=== PATIENT | male | born 1985 | race Caucasian/White ===

== ENCOUNTER 2017-07-19 17:19 | Emergency (ER) | payer SELFPAY ==
[~2017-07-19] VITALS: Ht 185.4 cm; Wt 81.6 kg
[~2017-07-19 17:19] MED LIST: CYCL10TA9 PO; DIAZ-345 PO; IBUP-1773 PO
--- NOTE | 2017-07-19 18:27 | ED Psychosocial ---
General Chief Complaint: General Problems/Pain Stated Complaint: PAIN IN LT LEG Nursing Triage Note: PATIENT HAS HAD PAIN IN THE POSTERIOR LEFT LEG FOR ABOUT ONE WEEK, SPECIFICALLY BEHIND THE KNEE. HE BELIEVES HE HAS A BLOOD CLOT. Source: patient Exam Limitations: no limitations (NADIRA VALENTINO) History of Present Illness Time seen by provider: 17:45 Initial Comments 32 -year-old male patient presents to the emergency department initially with reports of posterior left knee pain and swelling x1 wk. Patient is concerned about a blood clot. Patient does c/o chest pain and SOA, but has a h/o 3 fungal infections of the lungs after cleaning out a grain bin at work and states "I almost from them."During the visit however patient verbalizes being under a lot of stress and suffering from depression. Patient states he doesn't care what happens to him. Denies being suicidal or having a plan. States he just doesn't care if something happens to him. Patient states he has a 3 yo son in [place] and the mother will not let him see his son. Timing/Duration: week (NADIRA VALENTINO) Allergies and Home Medications Allergies Coded Allergies: Sulfa (Sulfonamide Antibiotics) (Verified Allergy, Unknown, 06/09/15) Home Medications No Active Prescriptions or Reported Meds Constitutional: No chills, No diaphoresis, No dizziness, No fever, No malaise EENTM: no symptoms reported Respiratory: cough, No phlegm, short of breath, wheezing Cardiovascular: see HPI, chest pain, No palpitations, No syncope Gastrointestinal: No abdominal pain, No constipation, No diarrhea, No nausea, No vomiting Genitourinary: no symptoms reported Musculoskeletal: see HPI, No back pain, joint pain, joint swelling, No neck pain Skin: no symptoms reported Psychiatric/Neurological: See HPI, Anxiety, Depressed, Denies Headache, Denies Numbness, Denies Paresthesia, Denies Seizure, Denies Tingling, Denies Weakness ( NADIRA VALENTINO) All Other Systems Reviewed Negative Unless Noted: Yes (Negative excepted noted.) (NADIRA VALENTINO) Past Eoshgfd-Cxiwak-Zscxke Hx Patient Social History Alcohol Use: Occasionally Uses Alcohol Beverage of Choice: Beer Recreational Drug Use: Yes Drug of Choice: MARIJUANA Smoking Status: Current Everyday Smoker Type Used: Cigars Recent Foreign Travel: No Contact w/Someone Who Travel: No Recent Infectious Disease Expo: No Physical Abuse: No Sexual Abuse: No (NADIRA VALENTINO) Immunizations Up To Date PED Vaccines UTD: Yes (NADIRA VALENTINO) Seasonal Allergies Seasonal Allergies: No (NADIRA VALENTINO) Surgeries History of Surgeries: Yes (right arm) Surgeries: Tonsillectomy (NADIRA VALENTINO) Respiratory History of Respiratory Disorde: No (NADIRA VALENTINO) Cardiovascular History of Cardiac Disorders: No (NADIRA VALENTINO) Neurological History of Neurological Disord: No (NADIRA VALENTINO) Reproductive System Hx Reproductive Disorders: No Sexually Transmitted Disease: No HIV/AIDS: No (NADIRA VALENTINO) Genitourinary History of Genitourinary Disor: No (NADIRA VALENTINO) Gastrointestinal History of Gastrointestinal Di: No (NADIRA VALENTINO) Musculoskeletal History of Musculoskeletal Dis: No (NADIRA VALENTINO) Endocrine History of Endocrine Disorders: No (NADIRA VALENTINO) Cancer History of Cancer: No (NADIRA VALENTINO) Psychosocial History of Psychiatric Problem: Yes Behavioral Health Disorders: Anxiety Suicide Risk Score: 0 (NADIRA VALENTINO) Integumentary History of Skin or Integumenta: No (NADIRA VALENTINO) Blood Transfusions History of Blood Disorders: No (NADIRA VALENTINO) Reviewed Nursing Assessment Reviewed/Agree w Nursing PMH: Yes (NADIRA VALENTINO) Family Medical History Significant Family History: No Pertinent Family Hx (NADIRA VALENTINO) Physical Exam Vital Signs Vital Sign - Last 12Hours 07/19/17 17:37 Temp 98.9 Pulse 86 Resp 18 B/P (MAP) 126/99 Pulse Ox 99 (LENORE GRIGSBY) Vital Signs Capillary Refill : Less Than 3 Seconds (NADIRA VALENTINO) General Appearance: WD/WN, no apparent distress HEENT: PERRL/EOMI, pharynx normal Neck: supple, normal inspection Respiratory: lungs clear, normal breath sounds, no respiratory distress, no accessory muscle use Cardiovascular: normal peripheral pulses, regular rate, rhythm, no edema, no murmur Peripheral Pulses: 2+ Dorsalis Pedis (R), 2+ Left Dors-Pedis (L), 2+ Radial Pulses (R), 2+ Radial Pulses (L) Gastrointestinal: normal bowel sounds, non tender, soft Extremities: normal range of motion, no pedal edema, no calf tenderness, normal capillary refill, other (left knee posterior tenderness. 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 unable to appreciate swelling to the left knee. Left knee full range of motion, tenderness at the medial proximal gastrocnemius. No effusion, negative [place], anterior and posterior drawer. Neurovascular status intact lower extremity symmetric with the left) (CALISTA,LENORE CONVEYOR ATTENDANT) Progress/Results/Core Measures Results/Orders Lab Results Laboratory Tests Test 07/19/17 18:26 07/19/17 18:39 Range/Units Urine Color YELLOW Urine Clarity CLEAR Urine pH 6 5-9 Urine Specific [place] 1.020 1.016-1.022 Urine Protein 3+ H NEGATIVE Urine Glucose (UA) NEGATIVE NEGATIVE Urine Ketones NEGATIVE NEGATIVE Urine Nitrite NEGATIVE NEGATIVE Urine Bilirubin NEGATIVE NEGATIVE Urine Urobilinogen 1 NORMAL MG/DL Urine Leukocyte Esterase 1+ H NEGATIVE Urine RBC (Auto) NEGATIVE NEGATIVE Urine RBC NONE /HPF Urine WBC 2-5 /HPF Urine Crystals NONE /LPF Urine Bacteria NONE /HPF Urine Casts NONE /LPF Urine Mucus SMALL H /LPF Urine Culture Indicated NO Urine Opiates Screen NEGATIVE NEGATIVE Urine Oxycodone Screen NEGATIVE NEGATIVE Urine Methadone Screen NEGATIVE NEGATIVE Urine Propoxyphene Screen NEGATIVE NEGATIVE Urine Barbiturates Screen NEGATIVE NEGATIVE Ur Tricyclic Antidepressants Screen NEGATIVE NEGATIVE Urine Phencyclidine Screen NEGATIVE NEGATIVE Urine Amphetamines Screen NEGATIVE NEGATIVE Urine Methamphetamines Screen POSITIVE H NEGATIVE Urine Benzodiazepines Screen POSITIVE H NEGATIVE Urine Cocaine Screen NEGATIVE NEGATIVE Urine Cannabinoids Screen POSITIVE H NEGATIVE White Blood Count 6.9 4.3-11.0 10^3/uL Red Blood Count 5.23 4.35-5.85 10^6/uL Hemoglobin 15.8 13.3-17.7 G/DL Hematocrit 46 40-54 % Mean Corpuscular Volume 89 80-99 FL Mean Corpuscular Hemoglobin 30 25-34 PG Mean Corpuscular Hemoglobin Concent 34 32-36 G/DL Red Cell Distribution Width 12.4 10.0-14.5 % Platelet Count 271 130-400 10^3/uL Mean Platelet Volume 10.6 H 7.4-10.4 FL Neutrophils (%) (Auto) 70 42-75 % Lymphocytes (%) (Auto) 18 12-44 % Monocytes (%) (Auto) 9 0-12 % Eosinophils (%) (Auto) 2 0-10 % Basophils (%) (Auto) 0 0-10 % Neutrophils # (Auto) 4.9 1.8-7.8 X 10^3 Lymphocytes # (Auto) 1.3 1.0-4.0 X 10^3 Monocytes # (Auto) 0.7 0.0-1.0 X 10^3 Eosinophils # (Auto) 0.1 0.0-0.3 10^3/uL Basophils # (Auto) 0.0 0.0-0.1 10^3/uL Sodium Level 141 135-145 MMOL/L Potassium Level 3.8 3.6-5.0 MMOL/L Chloride Level 105 98-107 MMOL/L Carbon Dioxide Level 28 21-32 MMOL/L Anion Gap 8 5-14 MMOL/L Blood Urea Nitrogen 9 7-18 MG/DL Creatinine 0.97 0.60-1.30 MG/DL Estimat Glomerular Filtration Rate > 60 BUN/Creatinine Ratio 9 Glucose Level 96 70-105 MG/DL Calcium Level 9.3 8.5-10.1 MG/DL Total Bilirubin 0.3 0.1-1.0 MG/DL Aspartate Amino Transf (AST/SGOT) 17 5-34 U/L Alanine Aminotransferase (ALT/SGPT) 12 0-55 U/L Alkaline Phosphatase 55 40-136 U/L Total Protein 7.1 6.4-8.2 GM/DL Albumin 4.3 3.2-4.5 GM/DL TSH [place] Testing 1.72 0.35-4.94 UIU/ML Salicylates Level < 5.0 L 5.0-20.0 MG/DL Acetaminophen Level < 10 L 10-30 UG/ML Serum Alcohol < 10 <10 MG/DL (LENORE GRIGSBY DEEPIKA) Medications Given in ED Current Medications Medications Dose Ordered Sig/Jocelyn Route Start Time Stop Time Status Last Admin Dose Admin Iohexol 150 ml ONCE ONCE IV 07/19/17 18:30 07/19/17 18:31 DC 07/19/17 18:52 125 ML Lorazepam 1 mg ONCE ONCE IVP 07/19/17 18:30 07/19/17 18:31 DC 07/19/17 19:03 1 MG Sodium Chloride 100 ml ONCE ONCE IV 07/19/17 18:30 07/19/17 18:31 DC 07/19/17 18:52 100 ML (LENORE GRIGSBY DEEPIKA) Vital Signs/I&O Vital Sign - Last 12Hours 07/19/17 07/19/17 17:37 20:40 Temp 98.9 98.9 Pulse 86 86 Resp 18 18 B/P (MAP) 126/99 Pulse Ox 99 99 (LENORE GRIGSBY DEEPIKA) Blood Pressure Mean: 108 Progress Note : Progress Note 1930 reviewed results of all labs and diagnostic studies with the patient. Discussed the positive benzodiazepine on his urine drug screen, he reports that he was given a pill by a friend the other day and it "could have been valium." He adamantly denies using methamphetamines. He does report smoking marijuana irregularly. 2000 long discussion with the patient regarding mental health issues. He denies any thoughts or plans of suicide or homicidal actions. He does have feelings of hopelessness, this is mainly related to his 3-year-old son. He has had no contact with him in several weeks and his ex-girlfriend is not allowing him to see his son. Discussed options for mental health services in [facility] and legal services offered at [facility]. He is open to these suggestions and the need for establishing with a primary care provider. Discussed at this time I'm not comfortable prescribing medication for his anxiety due to his use of illicit drugs and random "pills." He verbalized understanding of this and will return to the emergency department, call [phone] or call [phone] if he ever has homicidal or suicidal thoughts. (CALISTALENORE POE) ECG Initial ECG Impression Date: Jul 19, 2017 Initial ECG Impression Time: 18:57 Initial ECG Rate: 77 Initial ECG Rhythm: Normal Sinus Initial ECG Intervals: Normal Initial ECG Intervals Incomplete RBBB and LAFB VT 144, QRS D102, QT 356, QTC 403. Register P 56, QRS -50, T 66 Initial ECG Impression: Nonspecific Changes Initial ECG Comparisson: Changed, Unchanged Comment Reviewed EKG with Dr. Mcmanus, concurred with interpretation. (LENORE GRIGSBY) Diagnostic Imaging Diagonstic Imaging: CT Plain Films/CT/US/NM/MRI: chest Comments NAME: TOBY OH [facility] REC#: [id number] PT STATUS: REG ER : 1985 PHYSICIAN: NADIRA VALENTINO ADMIT DATE: 07/19/17/ER Draft Date of Exam:07/19/17 CT ANGIO CHEST W INDICATION: Left-sided chest pain with coughing and congestion. History of smoking. EXAMINATION: CT angiogram of the chest with contrast, 07/19/2017. FINDINGS: There are no central or proximal segmental pulmonary emboli. The thoracic aorta is intact and unremarkable. No hilar or mediastinal adenopathy is appreciated. There is no axillary adenopathy. There are several slightly hyperdense nodules in the right lung, likely calcified. A density in the anterior left mid lung (image 49) could be calcified but is somewhat small for characterization. A likely calcified nodule in the right anterior mid lung is noted. There is a 5.6 mm nodule in the periphery of the right middle lobe, possibly calcified. A nodule in the right mid lower lobe (image 120) is also noted. A noncalcified nodule in left mid posterior lung (image 91) is seen measuring almost 6 mm in size. There is a noncalcified nodule within the anterior aspect of the left midlung (image 89). The visualized upper abdominal structures appear unremarkable. There is no acute osseous abnormality. IMPRESSION: 1. No evidence for pulmonary embolus. 2. Multiple bilateral lung nodules. Several of these are likely calcified but are somewhat small for characterization. Others are noncalcified in nature; therefore, a metastatic process cannot be excluded. However, this is less likely given patient's age but correlation with history is recommended. Short-term interval followup in three months could be performed to assure stability of these findings. Dictated on workstation # [id number] Dict: 07/19/171905 Trans: 07/19/171915 PJE [id number] Interpreted by: JUANPABLO OH MD Electronically signed by: Reviewed: Reviewed by Me Diagonstic Imaging: Ultrasound Plain Films/CT/US/NM/MRI: leg Comments NAME: TOBY OH REC#: [id number] PT STATUS: REG ER : 1985 PHYSICIAN: NADIRA VALENTINO ADMIT DATE: 07/19/17/ER Draft Date of Exam:07/19/17 US VENOUS LOWER EXT LT PROCEDURE: US left lower extremity venous. TECHNIQUE: Multiple real-time grayscale images were obtained over the left lower extremity in various projections. Additional duplex Doppler and color Doppler images were also obtained. INDICATION: INDICATION: Left leg pain behind knee. EXAMINATION: Left lower extremity venous Doppler dated 07/19/2017. TECHNIQUE: Waveform and spectral analysis of the lower extremity venous structures. FINDINGS: There is no evidence for deep vein thrombosis with normal compressibility, augmentation and spontaneity of all visualized venous structures. IMPRESSION: 1. No evidence for deep vein thrombosis. . Dictated on workstation # [id number] Dict: 07/19/17 1843 Trans: 07/19/17 1845 KB [id number] Interpreted by: JUANPABLO OH MD Electronically signed by: Reviewed: Reviewed by Me (LENORE GRIGSBY) Departure Communication (Admissions) Progress Notes 1830 patient seen and evaluated. labs obtained. CT angio chest and U/S LLE ordered to evaluate for PE and DVT. Patient care assumed by Lenore Grigsby APRN. Patient aware. (NADIRA VALENTINO) Impression Impression: Primary Impression: Gastrocnemius strain, left Qualified Codes: S86.112A - Strain of other muscle(s) and tendon(s) of posterior muscle group at lower leg level, left leg, initial encounter Additional Impressions: Substance abuse Anxiety Disposition: 01 HOME, SELF-CARE Condition: Stable Departure-Patient Inst. Decision time for Depature: 19:55 (LENORE GRIGSBY) Referrals: NO,LOCAL PHYSICIAN (PCP/Family) Primary Care Physician Patient Instructions: Anxiety, Adult (DC), Muscle Strain (DC) Add. Discharge Instructions: Establish care with primary care provider for follow-up and for referral to mental health services. Recommend CT of chest in 2-3 months. Wear shoes with slight elevation in the heel. Warm moist compression to left calf for pain. Ibuprofen 600 mg every 8 hours for pain. Call [phone] if feeling hopeless, anxiety or thoughts to harm self or others. Return to emergency department for new problems. All discharge instructions reviewed with patient and/or family. Voiced understanding. Scripts No Active Prescriptions or Reported Meds Work/School Note: Local Medical Staff Listing NADIRA VALENTINO Jul 19, 2017 18:26 LENORE GRIGSBY Jul 19, 2017 19:33
[2017-07-19] MEDS ORDERED: IOHEXOL 350 MG/ML 150 ML (OMNIPAQUE 350) VIAL IV ONE (18:30)
[2017-07-19] MEDS ORDERED: LORazepam INJ 2 MG/ML (ATIVAN) VIAL IVP ONE (18:30)
[2017-07-19] MEDS ORDERED: NS 100 ML (IVPB) BAG IV ONE (18:30)
[2017-07-19 18:32] LABS: BILIRUBIN,URINE NEGATIVE (NEGATIVE); KETONES,URINE NEGATIVE (NEGATIVE); LEUKOCYTE ESTERASE ,URINE 1+ (NEGATIVE); NITRITE,URINE NEGATIVE (NEGATIVE); PH,URINE 6 (5-9); PROTEIN,URINE 3+ (NEGATIVE); UROBILINOGEN,URINE 1 MG/DL (NORMAL)
--- NOTE | 2017-07-19 18:46 | Diagnostic Imaging Report ---
PROCEDURE: US left lower extremity venous. TECHNIQUE: Multiple real-time grayscale images were obtained over the left lower extremity in various projections. Additional duplex Doppler and color Doppler images were also obtained. INDICATION: INDICATION: Left leg pain behind knee. EXAMINATION: Left lower extremity venous Doppler dated 07/19/2017. TECHNIQUE: Waveform and spectral analysis of the lower extremity venous structures. FINDINGS: There is no evidence for deep vein thrombosis with normal compressibility, augmentation and spontaneity of all visualized venous structures. IMPRESSION: 1. No evidence for deep vein thrombosis. . Dictated by: Dictated on workstation # [id number]
[2017-07-19 18:56] LABS: BASOPHILS % (AUTO) 0 % (0-10); EOSINOPHILS # (AUTO) 0.1 10^3/uL (0.0-0.3); EOSINOPHILS % (AUTO) 2 % (0-10); LYMPHOCYTES # (AUTO) 1.3 X 10^3 (1.0-4.0); LYMPHOCYTES % (AUTO) 18 % (12-44); MEAN CORPUSCULAR HEMOGLOBIN 30 PG (25-34); MEAN CORPUSCULAR HGB CONC 34 G/DL (32-36); MEAN CORPUSCULAR VOLUME 89 FL (80-99); MEAN PLATELET VOLUME 10.6 FL (7.4-10.4); MONOCYTES # (AUTO) 0.7 X 10^3 (0.0-1.0); MONOCYTES % (AUTO) 9 % (0-12); NEUTROPHILS # (AUTO) 4.9 X 10^3 (1.8-7.8); NEUTROPHILS % (AUTO) 70 % (42-75); PLATELET COUNT 271 10^3/uL (130-400); RED BLOOD COUNT 5.23 10^6/uL (4.35-5.85); RED CELL DISTRIBUTION WIDTH 12.4 % (10.0-14.5); WHITE BLOOD COUNT 6.9 10^3/uL (4.3-11.0)
[2017-07-19 19:14] LABS: ALANINE AMINOTRANSFERASE 12 U/L (0-55); ALBUMIN 4.3 GM/DL (3.2-4.5); ALCOHOL < 10 MG/DL (<10); ANION GAP 8 MMOL/L (5-14); ASPARTATE AMINO TRANSFERASE 17 U/L (5-34); BILIRUBIN,TOTAL 0.3 MG/DL (0.1-1.0); BLOOD UREA NITROGEN 9 MG/DL (7-18); BUN/CREATININE RATIO 9; CALCIUM 9.3 MG/DL (8.5-10.1); CARBON DIOXIDE 28 MMOL/L (21-32); CHLORIDE 105 MMOL/L (98-107); CREATININE SERUM 0.97 MG/DL (0.60-1.30); GFR ESTIMATED > 60; GLUCOSE 96 MG/DL (70-105); POTASSIUM 3.8 MMOL/L (3.6-5.0); SALICYLATE < 5.0 MG/DL (5.0-20.0); SODIUM 141 MMOL/L (135-145); TOTAL PROTEIN 7.1 GM/DL (6.4-8.2)
[2017-07-19 19:16] LABS: ACETAMINOPHEN < 10 UG/ML (10-30)
--- NOTE | 2017-07-19 19:16 | Diagnostic Imaging Report ---
INDICATION: Left-sided chest pain with coughing and congestion. History of smoking. EXAMINATION: CT angiogram of the chest with contrast, 07/19/2017. FINDINGS: There are no central or proximal segmental pulmonary emboli. The thoracic aorta is intact and unremarkable. No hilar or mediastinal adenopathy is appreciated. There is no axillary adenopathy. There are several slightly hyperdense nodules in the right lung, likely calcified. A density in the anterior left mid lung (image 49) could be calcified but is somewhat small for characterization. A likely calcified nodule in the right anterior mid lung is noted. There is a 5.6 mm nodule in the periphery of the right middle lobe, possibly calcified. A nodule in the right mid lower lobe (image 120) is also noted. A noncalcified nodule in left mid posterior lung (image 91) is seen measuring almost 6 mm in size. There is a noncalcified nodule within the anterior aspect of the left midlung (image 89). The visualized upper abdominal structures appear unremarkable. There is no acute osseous abnormality. IMPRESSION: 1. No evidence for pulmonary embolus. 2. Multiple bilateral lung nodules. Several of these are likely calcified but are somewhat small for characterization. Others are noncalcified in nature; therefore, a metastatic process cannot be excluded. However, this is less likely given patient's age but correlation with history is recommended. Short-term interval followup in three months could be performed to assure stability of these findings. Dictated by: Dictated on workstation # [id number]
[2017-07-19 20:40] VITALS: BP 126/99
== END 2017-07-19 20:40 ==
LOC: EDUNIT# 17:19 → ER 17:22
DX: S86.812A Strain of other muscle(s) and tendon(s) at lower leg level, left leg, initial encounter (principal); F41.9 Anxiety disorder, unspecified; Z90.89 Acquired absence of other organs; Z87.2 Personal history of diseases of the skin and subcutaneous tissue; F12.90 Cannabis use, unspecified, uncomplicated; F17.290 Nicotine dependence, other tobacco product, uncomplicated; X58.XXXA Exposure to other specified factors, initial encounter
CPT/HCPCS: 36415; 71275; 80053; 80306; 80320; 80329; 81000; 84443; 85025; 93005; 96374

== ENCOUNTER 2018-05-06 10:38 | Emergency (ER) | payer SELFPAY ==
[~2018-05-06] VITALS: Ht 182.9 cm; Wt 95.3 kg
--- NOTE | 2018-05-06 12:00 | ED General ---
General Chief Complaint: General Problems/Pain Stated Complaint: BACK PAIN Nursing Triage Note: TO ROOM REPORTS PAIN IN T SPINE AREA AND JUST IN GENERAL NOT FEELING WELL. HAS HX OF ANXIETY. WAS SEEN AT URGENT CARE SEVERAL DAYS AGO,AND REPORTS THEY DID NOTHING FOR HIM VAUGE ABOUT SYMPTOMS. Nursing Sepsis Screen: No Definite Risk Source of Information: Patient Exam Limitations: No Limitations History of Present Illness Date Seen by Provider: May 06, 2018 Time Seen by Provider: 11:57 Initial Comments to ER with reports of left thoracic back pain for about a week. states he generally does not feel well. History of anxiety. He is uncertain whether this is just back pain or whether it represents kidney pain. He does have some mild shortness of breath and a cough but states he is a smoker and this is nothing new for him. Denies fevers or chills. He does report a history of nephrotic syndrome as a child but states that he's been fine for many years. The pain has not been significant enough that he is even taken a Tylenol or Motrin he states , he is just worried about what may represent. Timing/Duration: 1 Week Severity: Moderate Associated Systoms: Cough; No Fever/Chills, No Headaches, No Nausea/Vomiting Allergies and Home Medications Allergies Coded Allergies: Sulfa (Sulfonamide Antibiotics) (Verified Allergy, Unknown, 06/09/15) Home Medications No Active Prescriptions or Reported Meds Patient Home Medication List Home Medication List Reviewed: Yes Review of Systems Constitutional: see HPI EENTM: see HPI Respiratory: no symptoms reported Cardiovascular: no symptoms reported Genitourinary: no symptoms reported Musculoskeletal: no symptoms reported, see HPI, back pain Skin: no symptoms reported Psychiatric/Neurological: No Symptoms Reported Hematologic/Lymphatic: No Symptoms Reported Immunological/Allergic: no symptoms reported Past Ffpmefv-Ehjkfi-Oxusdl Hx Patient Social History Alcohol Use: Denies Use Number of Drinks Today: AA Alcohol Beverage of Choice: Beer Recreational Drug Use: No Drug of Choice: MARIJUANA Type Used: Cigars 2nd Hand Smoke Exposure: No Recent Foreign Travel: No Contact w/Someone Who Travel: No Recent Infectious Disease Expo: No Immunizations Up To Date PED Vaccines UTD: Yes Seasonal Allergies Seasonal Allergies: No Past Medical History Surgeries: Yes (right arm) Tonsillectomy Respiratory: No Cardiac: No Neurological: No Reproductive Disorders: No Sexually Transmitted Disease: No HIV/AIDS: No Genitourinary: No Gastrointestinal: No Musculoskeletal: No Endocrine: No Cancer: No Psychosocial: Yes Anxiety Integumentary: No Blood Disorders: No Family Medical History No Pertinent Family Hx Physical Exam Vital Signs Vital Signs - First Documented 05/06/18 11:10 Temp 97.6 Pulse 81 Resp 18 B/P (MAP) 135/87 (103) Pulse Ox 98 O2 Delivery Room Air Capillary Refill : Less Than 3 Seconds Height, Weight, BMI Height: 6'1" Weight: 210lbs. oz. 95.204360ov; 23.75 BMI Method:Stated General Appearance: No Apparent Distress, WD/WN Eyes: Bilateral Eye Normal Inspection, Bilateral Eye PERRL, Bilateral Eye EOMI HEENT: PERRL/EOMI, TMs Normal Respiratory: No Accessory Muscle Use, No Respiratory Distress Cardiovascular: Regular Rate, Rhythm, Normal Peripheral Pulses Gastrointestinal: Normal Bowel Sounds, Non Tender, Soft Extremity: Normal Capillary Refill Neurologic/Psychiatric: Alert, Oriented x3, No Motor/Sensory Deficits Progress/Results/Core Measures Suspected Sepsis Recent Fever Within 48 Hours: No Infection Criteria Present: None New/Unexplained Altered Menta: No Sepsis Screen: No Definite Risk SIRS Temperature:97.6 Pulse: 81 Respiratory Rate: 18 Laboratory Tests 05/06/18 12:06: White Blood Count 8.2 Blood Pressure 135 /87 Mean: 103 Laboratory Tests 05/06/18 12:06: Creatinine 0.84, Platelet Count 292, Total Bilirubin 0.4 Results/Orders Lab Results Laboratory Tests Test 05/06/18 11:56 05/06/18 12:06 Range/Units Urine Color YELLOW Urine Clarity CLEAR Urine pH 8 5-9 Urine Specific [place] 1.010 L 1.016-1.022 Urine Protein NEGATIVE NEGATIVE Urine Glucose (UA) NEGATIVE NEGATIVE Urine Ketones NEGATIVE NEGATIVE Urine Nitrite NEGATIVE NEGATIVE Urine Bilirubin NEGATIVE NEGATIVE Urine Urobilinogen NORMAL NORMAL MG/DL Urine Leukocyte Esterase NEGATIVE NEGATIVE Urine RBC (Auto) NEGATIVE NEGATIVE Urine RBC NONE /HPF Urine WBC NONE /HPF Urine Crystals NONE /LPF Urine Bacteria NEGATIVE /HPF Urine Casts NONE /LPF Urine Mucus NEGATIVE /LPF Urine Culture Indicated NO White Blood Count 8.2 4.3-11.0 10^3/uL Red Blood Count 5.25 4.35-5.85 10^6/uL Hemoglobin 15.7 13.3-17.7 G/DL Hematocrit 46 40-54 % Mean Corpuscular Volume 88 80-99 FL Mean Corpuscular Hemoglobin 30 25-34 PG Mean Corpuscular Hemoglobin Concent 34 32-36 G/DL Red Cell Distribution Width 13.0 10.0-14.5 % Platelet Count 292 130-400 10^3/uL Mean Platelet Volume 10.3 7.4-10.4 FL Neutrophils (%) (Auto) 78 H 42-75 % Lymphocytes (%) (Auto) 12 12-44 % Monocytes (%) (Auto) 9 0-12 % Eosinophils (%) (Auto) 1 0-10 % Basophils (%) (Auto) 0 0-10 % Neutrophils # (Auto) 6.4 1.8-7.8 X 10^3 Lymphocytes # (Auto) 1.0 1.0-4.0 X 10^3 Monocytes # (Auto) 0.7 0.0-1.0 X 10^3 Eosinophils # (Auto) 0.1 0.0-0.3 10^3/uL Basophils # (Auto) 0.0 0.0-0.1 10^3/uL Sodium Level 143 135-145 MMOL/L Potassium Level 4.0 3.6-5.0 MMOL/L Chloride Level 107 98-107 MMOL/L Carbon Dioxide Level 26 21-32 MMOL/L Anion Gap 10 5-14 MMOL/L Blood Urea Nitrogen 10 7-18 MG/DL Creatinine 0.84 0.60-1.30 MG/DL Estimat Glomerular Filtration Rate > 60 BUN/Creatinine Ratio 12 Glucose Level 95 70-105 MG/DL Calcium Level 9.9 8.5-10.1 MG/DL Corrected Calcium 9.5 8.5-10.1 MG/DL Total Bilirubin 0.4 0.1-1.0 MG/DL Aspartate Amino Transf (AST/SGOT) 21 5-34 U/L Alanine Aminotransferase (ALT/SGPT) 18 0-55 U/L Alkaline Phosphatase 48 40-136 U/L Total Protein 7.4 6.4-8.2 GM/DL Albumin 4.5 3.2-4.5 GM/DL My Orders Orders - JOCE LEHMAN APRN Cbc With Automated Diff (05/06/18 11:56) Comprehensive Metabolic Panel (05/06/18 11:56) Ua Culture If Indicated (05/06/18 11:56) Chest Pa/Lat (2 View) (05/06/18 11:56) Ct Abd/Pelvis Wo(Kidney Stone) (05/06/18 11:56) Vital Signs/I&O 05/06/18 11:10 Temp 97.6 Pulse 81 Resp 18 B/P (MAP) 135/87 (103) Pulse Ox 98 O2 Delivery Room Air Capillary Refill : Less Than 3 Seconds Blood Pressure Mean: 103 Departure Impression Primary Impression: Left-sided thoracic back pain Disposition: HOME, SELF-CARE Condition: Stable Departure-Patient Inst. Decision time for Depature: 12:46 Referrals: NO,LOCAL PHYSICIAN (PCP/Family) Primary Care Physician Patient Instructions: Upper Back Pain Add. Discharge Instructions: 1. Return to ER for any concerns 2. Muscle relaxer as directed and accommodation with Tylenol and Motrin 3. See your doctor next week All discharge instructions reviewed with patient and/or family. Voiced understanding. Scripts Methocarbamol (Robaxin-750) 750 Mg Tablet 750 MG PO Q6H PRN for PAIN-MODERATE TO SEVERE, #14 TAB Prov: JOCE LEHMAN APRN 05/06/18 Images Torso/Trunk 1 - Tenderness JOCE LEHMAN APRN May 06, 2018 12:00
[2018-05-06 12:05] LABS: BILIRUBIN,URINE NEGATIVE (NEGATIVE); CLARITY,URINE CLEAR; COLOR,URINE YELLOW; GLUCOSE, URINE (UA) NEGATIVE (NEGATIVE); KETONES,URINE NEGATIVE (NEGATIVE); LEUKOCYTE ESTERASE ,URINE NEGATIVE (NEGATIVE); NITRITE,URINE NEGATIVE (NEGATIVE); PH,URINE 8 (5-9); PROTEIN,URINE NEGATIVE (NEGATIVE); UROBILINOGEN,URINE NORMAL (NORMAL)
[2018-05-06 12:14] LABS: BASOPHILS % (AUTO) 0 % (0-10); EOSINOPHILS # (AUTO) 0.1 10^3/uL (0.0-0.3); EOSINOPHILS % (AUTO) 1 % (0-10); HEMATOCRIT 46 % (40-54); HEMOGLOBIN 15.7 G/DL (13.3-17.7); LYMPHOCYTES % (AUTO) 12 % (12-44); MEAN CORPUSCULAR HEMOGLOBIN 30 PG (25-34); MEAN CORPUSCULAR HGB CONC 34 G/DL (32-36); MEAN CORPUSCULAR VOLUME 88 FL (80-99); MEAN PLATELET VOLUME 10.3 FL (7.4-10.4); MONOCYTES # (AUTO) 0.7 X 10^3 (0.0-1.0); MONOCYTES % (AUTO) 9 % (0-12); NEUTROPHILS # (AUTO) 6.4 X 10^3 (1.8-7.8); NEUTROPHILS % (AUTO) 78 % (42-75); PLATELET COUNT 292 10^3/uL (130-400); RED BLOOD COUNT 5.25 10^6/uL (4.35-5.85); WHITE BLOOD COUNT 8.2 10^3/uL (4.3-11.0)
[2018-05-06 12:35] LABS: ALANINE AMINOTRANSFERASE 18 U/L (0-55); ALBUMIN 4.5 GM/DL (3.2-4.5); ALKALINE PHOSPHATASE 48 U/L (40-136); BILIRUBIN,TOTAL 0.4 MG/DL (0.1-1.0); BUN/CREATININE RATIO 12; CALCIUM 9.9 MG/DL (8.5-10.1); CARBON DIOXIDE 26 MMOL/L (21-32); CHLORIDE 107 MMOL/L (98-107); CREATININE SERUM 0.84 MG/DL (0.60-1.30); GFR ESTIMATED > 60; GLUCOSE 95 MG/DL (70-105); SODIUM 143 MMOL/L (135-145); TOTAL PROTEIN 7.4 GM/DL (6.4-8.2)
--- NOTE | 2018-05-06 12:35 | Diagnostic Imaging Report ---
INDICATION: Chest and back pain COMPARISON: 06/09/2015 FINDINGS: Frontal and lateral views of the chest demonstrate clear lungs bilaterally. The heart is normal. There is no pneumothorax. The osseous structures normal. IMPRESSION: Negative chest. Dictated by: Dictated on workstation # [id number]
--- NOTE | 2018-05-06 12:36 | Diagnostic Imaging Report ---
PROCEDURE: CT urinary tract, rule out kidney stone. TECHNIQUE: Multiple contiguous axial images were obtained through the abdomen and pelvis without the use of intravenous contrast. INDICATION: Nausea, vomiting, and abdominal pain. COMPARISON: None. FINDINGS: The lung bases are clear. Questionable tiny calcifications are seen within the gallbladder, which could represent cholelithiasis. Consider ultrasound correlation. Otherwise, the spleen, pancreas, adrenal glands, kidneys, vascular structures, and bowel are normal. The appendix is normal. No nephrolithiasis is seen. Distal ureters and urinary bladder are normal. No prostate enlargement identified. There is no hernia. Osseous structures are age appropriate. IMPRESSION: 1. Questionable cholelithiasis. Consider ultrasound. 2. No renal calculi or hydronephrosis. 3. Normal appendix. Dictated by: Dictated on workstation # [id number]
[2018-05-06 12:39] LABS: BACTERIA,URINE NEGATIVE /HPF
[2018-05-06] MEDS ORDERED: METH-313 PO (12:47)
[2018-05-06 13:11] VITALS: BP 135/87
== END 2018-05-06 13:00 | disposition home or self-care (01) ==
LOC: EDUNIT# 10:38 → ER 10:40
DX: M54.6 Pain in thoracic spine (principal); F41.9 Anxiety disorder, unspecified; F17.290 Nicotine dependence, other tobacco product, uncomplicated; Z88.2 Allergy status to sulfonamides; Z90.89 Acquired absence of other organs
CPT/HCPCS: 36415; 71046; 74176; 80053; 81000; 85025

== ENCOUNTER → 2018-05-25 | Outpatient (CLI) | payer SELFPAY ==
[~2018-05-25] MED LIST changes: +METH-313 PO
== END ==
LOC: RAD 09:00
PROVIDERS: ATTEND Nurse Practitioner Primary Care
DX: K80.20 Calculus of gallbladder without cholecystitis without obstruction (principal); Z53.8 Procedure and treatment not carried out for other reasons

== ENCOUNTER → 2018-05-31 | Outpatient (CLI) | payer SELFPAY ==
--- NOTE | 2018-05-31 09:19 | Diagnostic Imaging Report ---
INDICATION: Abdominal pain. Gallbladder sonography performed in the routine fashion. FINDINGS: The liver shows normal echogenicity with no focal lesions. Gallbladder shows no gallstones or wall thickening. Common duct measured 2.7 mm. Portal vein is patent. The right kidney was normal and measured 11.4 cm in length. The pancreas appears normal. There is no ascites. IMPRESSION: Unremarkable right upper quadrant ultrasound. Dictated by: Dictated on workstation # [id number]
== END ==
LOC: RAD 08:29
PROVIDERS: ATTEND Nurse Practitioner Primary Care
DX: R10.9 Unspecified abdominal pain (principal)
CPT/HCPCS: 76705

== ENCOUNTER 2021-09-17 16:36 | Emergency (ER) | payer BC, OTHER ==
[~2021-09-17] VITALS: Ht 185 cm; Wt 100.0 kg
[2021-09-17 17:14] LABS: CLARITY,URINE CLEAR; COLOR,URINE YELLOW; GLUCOSE, URINE (UA) NEGATIVE (NEGATIVE); KETONES,URINE 1+ (NEGATIVE); LEUKOCYTE ESTERASE ,URINE NEGATIVE (NEGATIVE); NITRITE,URINE NEGATIVE (NEGATIVE); PROTEIN,URINE 1+ (NEGATIVE)
[2021-09-17 17:18] LABS: BASOPHILS # (AUTO) 0.1 10^3/uL (0.0-0.1); BASOPHILS % (AUTO) 1 % (0-10); EOSINOPHILS # (AUTO) 0.2 10^3/uL (0.0-0.3); EOSINOPHILS % (AUTO) 2 % (0-10); HEMATOCRIT 48 % (40-54); HEMOGLOBIN 16.2 g/dL (13.3-17.7); LYMPHOCYTES # (AUTO) 1.8 10^3/uL (1.0-4.0); LYMPHOCYTES % (AUTO) 20 % (12-44); MEAN CORPUSCULAR HEMOGLOBIN 30 pg (25-34); MEAN CORPUSCULAR HGB CONC 34 g/dL (32-36); MEAN CORPUSCULAR VOLUME 89 fL (80-99); MEAN PLATELET VOLUME 10.3 fL (9.0-12.2); MONOCYTES # (AUTO) 0.7 10^3/uL (0.0-1.0); MONOCYTES % (AUTO) 8 % (0-12); NEUTROPHILS # (AUTO) 6.4 10^3/uL (1.8-7.8); NEUTROPHILS % (AUTO) 70 % (42-75); PLATELET COUNT 313 10^3/uL (130-400); WHITE BLOOD COUNT 9.1 10^3/uL (4.3-11.0)
[2021-09-17 17:24] LABS: ALBUMIN 4.4 GM/DL (3.2-4.5); POTASSIUM 3.6 MMOL/L (3.6-5.0)
[2021-09-17 17:25] LABS: CALCIUM 9.6 MG/DL (8.5-10.1)
[2021-09-17 17:26] LABS: TOTAL PROTEIN 7.6 GM/DL (6.4-8.2)
[2021-09-17 17:28] LABS: AMORPHOUS SEDIMENT,UR FEW AMOR URATES /LPF; BACTERIA,URINE TRACE /HPF; BILIRUBIN,TOTAL 0.5 MG/DL (0.1-1.0); BILIRUBIN,URINE 1+ (NEGATIVE); WBC,URINE 0-2 /HPF
[2021-09-17 17:30] LABS: CREATININE SERUM 0.87 MG/DL (0.60-1.30)
[2021-09-17] MEDS ORDERED: NS IV 1000 ML 1,000 ML IV SCH (18:00)
[2021-09-17] MEDS ORDERED: PANTOPRAZOLE 40 MG (PROTONIX) VIAL IV ONE (18:00)
[2021-09-17] MEDS ORDERED: KETOROLAC 30 MG/ML VIAL IVP ONE (18:00)
--- NOTE | 2021-09-17 18:06 | ED General ---
General Chief Complaint: Back Problems Stated Complaint: LIGHTHEADED,ARMS TINGLY,PAIN UNDER RIBS Source of Information: Patient Exam Limitations: No Limitations History of Present Illness Date Seen by Provider: Sep 17, 2021 Time Seen by Provider: 17:40 Initial Comments Patient is a 36-year-old male with multiple somatic complaints today primarily feeling lightheaded, dizzy, arm tingling "like I was going to pass out". Intermittent left upper quadrant abdominal pain that he describes as "burning". Sharp posterior left flank pain. He complains of some lesions on his scalp and he is concerned about a "staph infection". He also has a lesion on his nasal bridge that he is concerned about a staph infection. Patient has an appointment with his primary care doctor on Monday but became concerned about the lightheadedness today. He does not take any medications on a daily basis. He recently restarted smoking cigarettes about 2 months ago. He does not have excessive caffeine use or drink a lot of alcohol. He is concerned he might have ulcers. No recent fevers, chills, Covid concerns. No black or bloody stools. He does complain of a little bladder pressure but no dysuria, urgency or frequency. All other review of systems reviewed and negative except as stated Timing/Duration: Constant, Intermittent Severity: Moderate Associated Systoms: Malaise, Weakness, Other (Tingling) Allergies and Home Medications Allergies Coded Allergies: Sulfa (Sulfonamide Antibiotics) (Verified Allergy, Unknown, 06/09/15) Patient Home Medication List Home Medication List Reviewed: Yes Methocarbamol (Robaxin-750) 750 Mg Tablet, 750 MG PO Q6H PRN for PAIN-MODERATE TO SEVERE Prescribed by: JOCE LEHMAN on 05/06/18 1247 Mupirocin Calcium (Mupirocin) 15 Gm Cream..g., 15 GM TP BID Prescribed by: JR LANGFORD on 09/17/211810 Sulfamethoxazole/Trimethoprim (Bactrim Ds Tablet) 1 Each Tablet, 1 EACH PO BID Prescribed by: JR LANGFORD on 09/17/211810 Review of Systems Review of Systems Constitutional: see HPI EENTM: no symptoms reported Respiratory: no symptoms reported Gastrointestinal: abdominal pain (LUQ), nausea (Occasional) Genitourinary: other Musculoskeletal: no symptoms reported Skin: other (Lesions on the scalp and face) Psychiatric/Neurological: Anxiety All Other Systems Reviewed Negative Unless Noted: Yes Past Osiicir-Xgsief-Ityiun Hx Immunizations Up To Date PED Vaccines UTD: Yes Seasonal Allergies Seasonal Allergies: No Past Medical History Surgeries: Yes (right arm) Tonsillectomy Respiratory: No Cardiac: No Neurological: No Reproductive Disorders: No Sexually Transmitted Disease: No HIV/AIDS: No Genitourinary: No Gastrointestinal: No Musculoskeletal: No Endocrine: No Cancer: No Psychosocial: Yes Anxiety Integumentary: No Blood Disorders: No Family Medical History No Pertinent Family Hx Physical Exam Vital Signs Capillary Refill : Height, Weight, BMI Height: 6'1" Weight: 210lbs. oz. 95.490018bm; 23.75 BMI Method:Stated General Appearance: No Apparent Distress, WD/WN Eyes: Bilateral Eye Normal Inspection, Bilateral Eye PERRL, Bilateral Eye EOMI HEENT: PERRL/EOMI Neck: Normal Inspection Respiratory: Lungs Clear, Normal Breath Sounds, No Accessory Muscle Use, No Respiratory Distress Cardiovascular: Regular Rate, Rhythm, Normal Peripheral Pulses Gastrointestinal: Normal Bowel Sounds, Soft, Tenderness (Mild left upper quadrant tenderness) Extremity: Normal Capillary Refill, Normal Inspection, Normal Range of Motion, Non Tender, No Calf Tenderness Neurologic/Psychiatric: Alert, Oriented x3, No Motor/Sensory Deficits, Normal Mood/Affect Skin: Normal Color, Warm/Dry, Other (Crusted lesions to the right occipital scalp, small lesion that is slightly crusted on the nasal bridge. No surrounding erythema. No purulence or fluctuance. Slightly tender to palpation on the scalp.) Progress/Results/Core Measures Suspected Sepsis SIRS Temperature: Pulse: Respiratory Rate: Laboratory Tests 09/17/21 17:01: White Blood Count 9.1 Blood Pressure / Mean: Laboratory Tests 09/17/21 17:01: Creatinine 0.87, Platelet Count 313, Total Bilirubin 0.5 Results/Orders Lab Results Laboratory Tests Test 09/17/21 17:01 Range/Units White Blood Count 9.1 4.3-11.0 10^3/uL Red Blood Count 5.40 4.30-5.52 10^6/uL Hemoglobin 16.2 13.3-17.7 g/dL Hematocrit 48 40-54 % Mean Corpuscular Volume 89 80-99 fL Mean Corpuscular Hemoglobin 30 25-34 pg Mean Corpuscular Hemoglobin Concent 34 32-36 g/dL Red Cell Distribution Width 12.2 10.0-14.5 % Platelet Count 313 130-400 10^3/uL Mean Platelet Volume 10.3 9.0-12.2 fL Immature Granulocyte % (Auto) 0 % Neutrophils (%) (Auto) 70 42-75 % Lymphocytes (%) (Auto) 20 12-44 % Monocytes (%) (Auto) 8 0-12 % Eosinophils (%) (Auto) 2 0-10 % Basophils (%) (Auto) 1 0-10 % Neutrophils # (Auto) 6.4 1.8-7.8 10^3/uL Lymphocytes # (Auto) 1.8 1.0-4.0 10^3/uL Monocytes # (Auto) 0.7 0.0-1.0 10^3/uL Eosinophils # (Auto) 0.2 0.0-0.3 10^3/uL Basophils # (Auto) 0.1 0.0-0.1 10^3/uL Immature Granulocyte # (Auto) 0.0 0.0-0.1 10^3/uL Urine Color YELLOW Urine Clarity CLEAR Urine pH 6.0 5-9 Urine Specific [place] >=1.030 1.016-1.022 Urine Protein 1+ H NEGATIVE Urine Glucose (UA) NEGATIVE NEGATIVE Urine Ketones 1+ H NEGATIVE Urine Nitrite NEGATIVE NEGATIVE Urine Bilirubin 1+ H NEGATIVE Urine Urobilinogen 1.0 < = 1.0 MG/DL Urine Leukocyte Esterase NEGATIVE NEGATIVE Urine RBC (Auto) NEGATIVE NEGATIVE Urine RBC NONE /HPF Urine WBC 0-2 /HPF Urine Crystals PRESENT H /LPF Urine Amorphous Sediment FEW ELIZABETH URATES H /LPF Urine Bacteria TRACE /HPF Urine Casts NONE /LPF Urine Mucus MODERATE H /LPF Urine Culture Indicated NO Sodium Level 142 135-145 MMOL/L Potassium Level 3.6 3.6-5.0 MMOL/L Chloride Level 104 98-107 MMOL/L Carbon Dioxide Level 24 21-32 MMOL/L Anion Gap 14 5-14 MMOL/L Blood Urea Nitrogen 12 7-18 MG/DL Creatinine 0.87 0.60-1.30 MG/DL Estimat Glomerular Filtration Rate 100 BUN/Creatinine Ratio 14 Glucose Level 112 H 70-105 MG/DL Calcium Level 9.6 8.5-10.1 MG/DL Corrected Calcium 9.3 8.5-10.1 MG/DL Total Bilirubin 0.5 0.1-1.0 MG/DL Aspartate Amino Transf (AST/SGOT) 25 5-34 U/L Alanine Aminotransferase (ALT/SGPT) 22 0-55 U/L Alkaline Phosphatase 55 40-136 U/L Total Protein 7.6 6.4-8.2 GM/DL Albumin 4.4 3.2-4.5 GM/DL Lipase 24 8-78 U/L My Orders Orders - JR LANGFORD MD Ns Iv 1000 Ml (Sodium Chloride 0.9%) (09/17/21 18:00) Ketorolac Injection (Toradol Injection) (09/17/21 18:00) Pantoprazole Injection (Protonix Injecti (09/17/21 18:00) Medications Given in ED Current Medications Medications Dose Ordered Sig/Jocelyn Route Start Time Stop Time Status Last Admin Dose Admin Ketorolac Tromethamine 30 mg ONCE ONCE IVP 09/17/21 18:00 09/17/21 18:01 DC 09/17/21 18:08 30 MG Pantoprazole 40 mg ONCE ONCE IV 09/17/21 18:00 09/17/21 18:01 DC 09/17/21 18:08 40 MG Vital Signs/I&O Capillary Refill : Progress Note : Time: 18:02 Progress Note 36-year-old with multiple somatic complaints today. Chief complaint of concern for lightheadedness and near syncopal symptoms. Basic labs reviewed, urinalysis reviewed, he is quite concentrated on his urinalysis with no signs of infection. CBC and chemistry look quite well. His vital signs are stable. I recommended antibiotics for the scalp as well as mupirocin ointment. Recommended an antidandruff shampoo. We will start him on some acid reducers and advised Tylenol and ibuprofen as needed for pain. He has a scheduled follow-up appointment with his primary doctor, Dr. Graves on Monday. We will send this chart to him so that he is aware of the complaints. Patient is quite anxious, worried about "something bad" happening to him and him not being around for his kids. I suspect that the lightheadedness and dizziness and tingling in the arms are anxiety. He has no clinical or objective findings to warrant further studies from the emergency department. He is treated with a liter of normal saline, some Protonix and Toradol. All questions are sought and answered. Departure Impression Primary Impression: Folliculitis Additional Impressions: Anxiety GERD (gastroesophageal reflux disease) Qualified Codes: K21.9 - Gastro-esophageal reflux disease without esophagitis Disposition: 01 HOME, SELF-CARE Condition: Stable Departure-Patient Inst. Decision time for Depature: 18:05 Referrals: [facility] [place] Primary Care Physician ANTONI GRAVES MD Patient Instructions: Acid Reflux and GERD in Adults (DC), Anxiety, Adult (DC) Add. Discharge Instructions: Start an oofv-vby-bdkbhlp acid doggy daycare activities director such as Pepcid twice daily. Try and stop smoking. Tylenol and/or ibuprofen as needed for body aches and pains. Take the antibiotics three times a day for the next 7 days. Use the antibiotic ointment on the lesions twice a day for 5 days. Please keep your follow-up appointment with Dr. Graves on Monday. Return to the emergency department for any new, concerning or emergent complaints. Scripts Cephalexin (Cephalexin) 500 Mg Tablet 500 MG PO TID for 7 Days, #21 TAB Prov: JR LANGFORD MD 09/17/21 Mupirocin Calcium (Mupirocin) 15 Gm Cream..g. 15 GM TP BID, #1 EA apply to affected areas twice a day for 5 days Prov: JR LANGFORD MD 09/17/21 Copy Copies To 1: ANTONI GRAVES MD, KATHRYN M MD Sep 17, 2021 18:06
[2021-09-17] MEDS ORDERED: RX-CEPHALEXIN (KEFLEX) 250 MG CAP PPK#4 PO STA (18:11)
[2021-09-17] MEDS ORDERED: SULF1TAB38 PO (18:11)
[2021-09-17] MEDS ORDERED: MUPI15CR11 TP (18:11)
[2021-09-17] MEDS ORDERED: RX-MUPIROCIN (BACTROBAN) 2% OINT 22 GM TUBE TOP STA (18:11)
[2021-09-17] MEDS ORDERED: CEPH500T PO (18:13)
[2021-09-17] MEDS ORDERED: cefTRIAXone 1 GM PRE-MIX 50 ML IV ONE (18:30)
[2021-09-17 19:29] VITALS: BP 115/77
== END 2021-09-17 19:34 | disposition home or self-care (01) ==
LOC: EDUNIT# 16:36 → ER 16:39
DX: L73.9 Follicular disorder, unspecified (principal); F41.9 Anxiety disorder, unspecified; K21.9 Gastro-esophageal reflux disease without esophagitis
CPT/HCPCS: 36415; 80053; 81000; 83690; 85025

== ENCOUNTER 2021-09-18 15:34 | Emergency (ER) | payer BC ==
[~2021-09-18] VITALS: Ht 185.4 cm; Wt 94.5 kg
[~2021-09-18 15:34] MED LIST changes: +CEPH500T PO; +MUPI15CR11 TP; +SULF1TAB38 PO
--- NOTE | 2021-09-18 15:55 | ED General ---
General Stated Complaint: LIGHTHEADED, DRY MOUTH, PAIN IN BACK Source of Information: Patient (EXTREMELY VAGUE HISTORIAN) History of Present Illness Date Seen by Provider: Sep 18, 2021 Time Seen by Provider: 15:43 Initial Comments PT ARRIVES VIA POV FROM HOME--DROVE SELF HERE PT HAS A MULTITUDE OF VAGUE COMPLAINTS, AND IS EXTREMELY VAGUE ABOUT HOW LONG HE HAS BEEN HAVING SYMPTOMS PT WAS SEEN HERE YESTERDAY FOR THESE COMPLAINTS, HAD LAB DONE, AND DISMISSED WITH RX'S, BUT PT DID NOT GET THEM FILLED PT STATES HE FEELS DIZZY AND LIGHTHEADED, THAT HIS ARMS FEEL LIKE JELLO "FEEL LIKE I GOTTA BURP BUT I CAN'T" FEELS LIKE HE HAS A BUMP ON HIS LEFT UPPER CHEST STATES HIS MOUTH FEELS DRY, HAS HAD "3 BOTTLES OF WATER TODAY AND I PEED IT ALL OUT" HAS NOT EATEN ANYTHING TODAY--DOES NOT GIVE ANY REASON WHY HE DID NOT EAT TODAY. C/O BACK PAIN AND LEFT FLANK PAIN--UNABLE TO STATE HOW LONG THIS HAS BEEN GOING ON--"FOR AWHILE" "MAYBE A FEW MONTHS" C/O EPIGASTRIC DISCOMFORT STATES "IT'S LIKE I'M SHORT OF BREATH BUT I CAN BREATHE--IT FEELS LIKE SOMETHING'S TWITCHING ON IT" "MY GUT SAHU ALL THE TIME AND I CAN FEEL IT BURN IN MY BACK" ALSO C/O SPOTS ON HIS HEAD THAT HAVE BEEN THERE FOR YEARS ALSO C/O LEFT HIP PAIN --ONGOING "FOR AWHILE" ESSENTIALLY HAS A POSITIVE REVIEW OF SYSTEMS. PT STATES "I BEEN DEALING WITH SOME WEIRD THINGS THAT I CAN'T PUT MY FINGER ON" SYMPTOMS ARE NO DIFFERENT TODAY IN ANY WAY PT HAS NOT HAD COVID VACCINE NO FEVER NO URI SYMPTOMS OR COUGH NO LOSS OF TASTE OR SMELL Allergies and Home Medications Allergies Coded Allergies: Sulfa (Sulfonamide Antibiotics) (Verified Allergy, Unknown, 06/09/15) Patient Home Medication List Home Medication List Reviewed: Yes Cephalexin (Cephalexin) 500 Mg Tablet, 500 MG PO TID Prescribed by: JR LANGFORD on 09/17/21 1813 Methocarbamol (Robaxin-750) 750 Mg Tablet, 750 MG PO Q6H PRN for PAIN-MODERATE TO SEVERE Prescribed by: JOCE LEHMAN on 05/06/18 1247 Mupirocin Calcium (Mupirocin) 15 Gm Cream..g., 15 GM TP BID Prescribed by: JR LANGFORD on 09/17/211810 Discontinued Medications Sulfamethoxazole/Trimethoprim (Bactrim Ds Tablet) 1 Each Tablet, 1 EACH PO BID Prescribed by: JR LANGFORD on 09/17/211810 Review of Systems Review of Systems Constitutional: see HPI EENTM: no symptoms reported Respiratory: see HPI Cardiovascular: see HPI Gastrointestinal: see HPI Genitourinary: see HPI, frequency Musculoskeletal: see HPI Skin: see HPI Psychiatric/Neurological: See HPI Hematologic/Lymphatic: No Symptoms Reported Past Bardgoz-Noaqaz-Apuwmc Hx Patient Social History Tobacco Use?: Yes Tobacco type used: Cigarettes Substance use?: Yes Substance type: Marijuana Alcohol Use?: Yes (HX OF ABUSE/DAILY USE OF WHISKEY IN HIS 20'S) Alcohol Frequency: Once in a while Immunizations Up To Date PED Vaccines UTD: Yes Seasonal Allergies Seasonal Allergies: No Past Medical History Surgery/Hospitalization HX: TONSILLECTOMY RIGHT FOREARM FX/ORIF EGD--YEARS AGO Surgeries: Yes (right arm) Orthopedic, Tonsillectomy Respiratory: No Cardiac: No Neurological: No Reproductive Disorders: No Sexually Transmitted Disease: No HIV/AIDS: No Genitourinary: No Gastrointestinal: Yes Ulcer Musculoskeletal: Yes (RIGHT FOREARM FX/ORIF) Fractures Endocrine: No HEENT: Yes (S/P TONSILLECTOMY) Tonsilitis Cancer: No Psychosocial: Yes Anxiety Integumentary: No Blood Disorders: No Family Medical History No Pertinent Family Hx Physical Exam Vital Signs Vital Signs - First Documented 09/18/21 15:56 Temp 36.5 Pulse 83 Resp 18 B/P (MAP) 136/88 (104) Pulse Ox 97 O2 Delivery Room Air Capillary Refill : Height, Weight, BMI Height: 6'1" Weight: 210lbs. oz. 95.749329tf; 29.00 BMI Method:Stated General Appearance: No Apparent Distress, WD/WN, Anxious HEENT: PERRL/EOMI, Normal ENT Inspection, Pharynx Normal Neck: Normal Inspection Respiratory: Normal Breath Sounds, No Accessory Muscle Use, No Respiratory Distress, Other (LEFT UPPER CHEST TENDERNESS--PALPATION REPRODUCES PAIN ) Cardiovascular: Regular Rate, Rhythm, No Edema, No JVD, No Murmur, Normal Peripheral Pulses Gastrointestinal: Normal Bowel Sounds, No Organomegaly, No Pulsatile Mass, Soft Back: Normal Inspection, No CVA Tenderness, No Vertebral Tenderness Extremity: Normal Capillary Refill, Normal Inspection, Normal Range of Motion, Non Tender, No Calf Tenderness, No Pedal Edema Neurologic/Psychiatric: Alert, Oriented x3, No Motor/Sensory Deficits, director enterprise sales II- XII Norm as Tested Skin: Normal Color, Warm/Dry Progress/Results/Core Measures Suspected Sepsis SIRS Temperature: Pulse: Respiratory Rate: Laboratory Tests 09/18/21 15:59: White Blood Count 8.6 Blood Pressure / Mean: Laboratory Tests 09/18/21 15:59: Creatinine 0.82, Platelet Count 295, Total Bilirubin 0.6 Results/Orders Lab Results Laboratory Tests Test 09/18/21 15:50 09/18/21 15:59 09/18/21 16:00 Range/Units Lipase 18 8-78 U/L White Blood Count 8.6 4.3-11.0 10^3/uL Red Blood Count 4.99 4.30-5.52 10^6/uL Hemoglobin 15.2 13.3-17.7 g/dL Hematocrit 46 40-54 % Mean Corpuscular Volume 91 80-99 fL Mean Corpuscular Hemoglobin 31 25-34 pg Mean Corpuscular Hemoglobin Concent 33 32-36 g/dL Red Cell Distribution Width 12.2 10.0-14.5 % Platelet Count 295 130-400 10^3/uL Mean Platelet Volume 10.1 9.0-12.2 fL Immature Granulocyte % (Auto) 0 % Neutrophils (%) (Auto) 78 H 42-75 % Lymphocytes (%) (Auto) 14 12-44 % Monocytes (%) (Auto) 7 0-12 % Eosinophils (%) (Auto) 1 0-10 % Basophils (%) (Auto) 0 0-10 % Neutrophils # (Auto) 6.7 1.8-7.8 10^3/uL Lymphocytes # (Auto) 1.2 1.0-4.0 10^3/uL Monocytes # (Auto) 0.6 0.0-1.0 10^3/uL Eosinophils # (Auto) 0.1 0.0-0.3 10^3/uL Basophils # (Auto) 0.0 0.0-0.1 10^3/uL Immature Granulocyte # (Auto) 0.0 0.0-0.1 10^3/uL Sodium Level 140 135-145 MMOL/L Potassium Level 3.8 3.6-5.0 MMOL/L Chloride Level 105 98-107 MMOL/L Carbon Dioxide Level 23 21-32 MMOL/L Anion Gap 12 5-14 MMOL/L Blood Urea Nitrogen 9 7-18 MG/DL Creatinine 0.82 0.60-1.30 MG/DL Estimat Glomerular Filtration Rate 107 BUN/Creatinine Ratio 11 Glucose Level 98 70-105 MG/DL Calcium Level 9.5 8.5-10.1 MG/DL Corrected Calcium 9.3 8.5-10.1 MG/DL Magnesium Level 1.7 1.6-2.4 MG/DL Total Bilirubin 0.6 0.1-1.0 MG/DL Aspartate Amino Transf (AST/SGOT) 22 5-34 U/L Alanine Aminotransferase (ALT/SGPT) 19 0-55 U/L Alkaline Phosphatase 52 40-136 U/L Troponin I < 0.028 <0.028 NG/ML Total Protein 7.2 6.4-8.2 GM/DL Albumin 4.3 3.2-4.5 GM/DL Amylase Level 33 25-125 U/L Acetaminophen Level < 10 L 10-30 UG/ML Serum Alcohol < 10 <10 MG/DL Urine Color YELLOW Urine Clarity CLEAR Urine pH 6.0 5-9 Urine Specific [place] 1.025 H 1.016-1.022 Urine Protein NEGATIVE NEGATIVE Urine Glucose (UA) NEGATIVE NEGATIVE Urine Ketones 1+ H NEGATIVE Urine Nitrite NEGATIVE NEGATIVE Urine Bilirubin NEGATIVE NEGATIVE Urine Urobilinogen 0.2 < = 1.0 MG/DL Urine Leukocyte Esterase NEGATIVE NEGATIVE Urine RBC (Auto) TRACE-I H NEGATIVE Urine RBC NONE /HPF Urine WBC RARE /HPF Urine Squamous Epithelial Cells RARE /HPF Urine Crystals NONE /LPF Urine Bacteria TRACE /HPF Urine Casts NONE /LPF Urine Mucus MODERATE H /LPF Urine Culture Indicated NO Urine Opiates Screen NEGATIVE NEGATIVE Urine Oxycodone Screen NEGATIVE NEGATIVE Urine Methadone Screen NEGATIVE NEGATIVE Urine Propoxyphene Screen NEGATIVE NEGATIVE Urine Barbiturates Screen NEGATIVE NEGATIVE Ur Tricyclic Antidepressants Screen NEGATIVE NEGATIVE Urine Phencyclidine Screen NEGATIVE NEGATIVE Urine Amphetamines Screen NEGATIVE NEGATIVE Urine Methamphetamines Screen NEGATIVE NEGATIVE Urine Benzodiazepines Screen NEGATIVE NEGATIVE Urine Cocaine Screen NEGATIVE NEGATIVE Urine Cannabinoids Screen NEGATIVE NEGATIVE My Orders Orders - EMILIANO,CLOVIS K DO Ed Iv/Invasive Line Start (09/18/21 15:55) Ekg Tracing (09/18/21 15:55) Monitor-Rhythm Ecg Trace Only (09/18/21 15:55) Acetaminophen (09/18/21 15:55) Alcohol (09/18/21 15:55) Amylase (09/18/21 15:55) Cbc With Automated Diff (09/18/21 15:55) Comprehensive Metabolic Panel (09/18/21 15:55) Drug Screen Stat (Urine) (09/18/21 15:55) Magnesium (09/18/21 15:55) Ua Culture If Indicated (09/18/21 15:55) Troponin I Maisha (09/18/21 15:55) Ed Iv/Invasive Line Start (09/18/21 15:55) Lactated Ringers (Lr 1000 Ml Iv Solution (09/18/21 16:00) Ct Jany Chest/Noang Abd-Pelv W (09/18/21 15:55) Iohexol Injection (Omnipaque 350 Mg/Ml 1 (09/18/21 16:15) Received Contrast (Hold Metformin- Contr (09/18/21 16:15) Ns (Ivpb) (Sodium Chloride 0.9% Ivpb Bag (09/18/21 16:15) Lipase (09/18/21 16:27) Medications Given in ED Vital Signs/I&O 09/18/21 09/18/21 15:56 18:13 Temp 36.5 Pulse 83 82 Resp 18 18 B/P (MAP) 136/88 (104) 126/68 Pulse Ox 97 O2 Delivery Room Air Room Air Capillary Refill : Progress Note : Progress Note PT SLEPT FOR MOST OF REMAINDER OF ER STAY AND HAD NO COMPLAINTS FOR THE ENTIRE ER STAY VITALS STABLE AT DISMISSAL, AFTER GOING OVER ALL TEST RESULTS, AND DISCHARGE INSTRUCTIONS, PT IS NOW SUDDENLY AGGRESSIVE AND AGITATED AND ANGRY AND ARGUMENTATIVE, AND DEMANDING THAT I "DO SOMETHING" AND THAT "THE TESTS CAN'T BE RIGHT" -ADVISED HIM THAT ALL TESTS TODAY WERE ESSENTIALLY NORMAL, AND HE DID NOT MEET ANY CRITERIA FOR ADMIT OR FURTHER EMERGENT TESTS AT THIS TIME, AND THAT HE SHOULD FOLLOW UP WITH [facility] IN THE NEXT COUPLE OF DAYS FOR FURTHER CARE. ECG Initial ECG Impression Date: Sep 18, 2021 Initial ECG Impression Time: 16:07 Initial ECG Rate: 72 Initial ECG Rhythm: Normal Sinus Initial ECG Impression: Nonspecific Changes Initial ECG Comparisson: No Previous ECG Available Diagnostic Imaging Comments CT CHEST/ABDOMEN/PELVIS--PER RADIOLOGIST REPORT AT 1759 Findings: There are multiple subcentimeter calcified granulomas. There is no identified noncalcified pulmonary nodule. There is no lung mass. There is no otherwise noted focal airspace consolidation. There is no pneumothorax. There is no pleural effusion. The central airways are patent. There is no identified pulmonary embolus. The heart is not enlarged. There is no pericardial effusion. There is no identified abnormally enlarged mediastinal, hilar or axillary lymph node which meets CT size criteria for adenopathy. There is bilateral gynecomastia. There is incidental note of direct origin of the left vertebral artery off the aortic arch. The liver is unremarkable in size and contour. There is no identified liver lesion. The main, right and left portal veins are patent. The gallbladder is unremarkable. There is no intrahepatic or extrahepatic bile duct dilation. The main pancreatic duct is not abnormally dilated. Unremarkable appearance of the pancreatic parenchyma. The spleen is normal in size. The adrenal glands are unremarkable. Unremarkable appearance of the renal parenchyma. The urinary collecting systems are not distended. There is no identified renal or ureteral stone. Urinary bladder is unremarkable. The intestinal tract is not distended. There is no evidence to suggest acute appendicitis. There is no free intraperitoneal air. There is no drainable fluid collection. There is no free pelvic fluid. There is no identified abnormally enlarged lymph node in the abdomen or pelvis meeting CT size criteria for adenopathy. There is no identified acute bony abnormality. Impression: 1. No identified pulmonary embolus or other acute cardiopulmonary abnormality. 2. Sequela of prior granulomatous disease. 3. No identified acute abnormality in the abdomen or pelvis. 4. Bilateral gynecomastia. Reviewed: Reviewed by Me Departure Impression Primary Impression: Anxiety Additional Impressions: GERD (gastroesophageal reflux disease) Non-cardiac chest pain Chest wall pain Disposition: 01 HOME, SELF-CARE Condition: Stable Departure-Patient Inst. Decision time for Depature: 17:59 Referrals: [facility] (PCP/Family) Primary Care Physician Patient Instructions: Acid Reflux and GERD in Adults (DC), Anxiety, Adult (DC), Chest Pain That Is Not Caused by the Heart (DC) Add. Discharge Instructions: TYLENOL NEEDED FOR PAIN GET YOUR PRESCRIPTIONS FILLED IN THE MORNING AND TAKE PRESCRIBED FOLLOW UP WITH [facility] NEXT WEEK FOR FURTHER CARE--CALL TOMORROW TO SCHEDULE APPOINTMENT CLOVIS CUMMINGS DO Sep 18, 2021 15:55
[2021-09-18] MEDS ORDERED: LACTATED RINGERS 1,000 ML IV ONE (16:00)
[2021-09-18 16:01] LABS: BASOPHILS % (AUTO) 0 % (0-10); EOSINOPHILS # (AUTO) 0.1 10^3/uL (0.0-0.3); EOSINOPHILS % (AUTO) 1 % (0-10); HEMATOCRIT 46 % (40-54); HEMOGLOBIN 15.2 g/dL (13.3-17.7); LYMPHOCYTES # (AUTO) 1.2 10^3/uL (1.0-4.0); LYMPHOCYTES % (AUTO) 14 % (12-44); MEAN CORPUSCULAR HEMOGLOBIN 31 pg (25-34); MEAN CORPUSCULAR HGB CONC 33 g/dL (32-36); MEAN CORPUSCULAR VOLUME 91 fL (80-99); MEAN PLATELET VOLUME 10.1 fL (9.0-12.2); MONOCYTES # (AUTO) 0.6 10^3/uL (0.0-1.0); MONOCYTES % (AUTO) 7 % (0-12); NEUTROPHILS # (AUTO) 6.7 10^3/uL (1.8-7.8); NEUTROPHILS % (AUTO) 78 % (42-75); PLATELET COUNT 295 10^3/uL (130-400); WHITE BLOOD COUNT 8.6 10^3/uL (4.3-11.0)
[2021-09-18 16:02] LABS: BILIRUBIN,URINE NEGATIVE (NEGATIVE); CLARITY,URINE CLEAR; COLOR,URINE YELLOW; GLUCOSE, URINE (UA) NEGATIVE (NEGATIVE); KETONES,URINE 1+ (NEGATIVE); LEUKOCYTE ESTERASE ,URINE NEGATIVE (NEGATIVE); NITRITE,URINE NEGATIVE (NEGATIVE); PROTEIN,URINE NEGATIVE (NEGATIVE)
[2021-09-18 16:09] LABS: ALBUMIN 4.3 GM/DL (3.2-4.5); CHLORIDE 105 MMOL/L (98-107); POTASSIUM 3.8 MMOL/L (3.6-5.0); SODIUM 140 MMOL/L (135-145)
[2021-09-18 16:10] LABS: BACTERIA,URINE TRACE /HPF; SQUAMOUS EPITHELIAL CELL,UR RARE /HPF; WBC,URINE RARE /HPF
[2021-09-18 16:11] LABS: AMYLASE 33 U/L (25-125); CALCIUM 9.5 MG/DL (8.5-10.1)
[2021-09-18 16:12] LABS: GLUCOSE 98 MG/DL (70-105); TOTAL PROTEIN 7.2 GM/DL (6.4-8.2)
[2021-09-18 16:13] LABS: CARBON DIOXIDE 23 MMOL/L (21-32)
[2021-09-18 16:13] LABS: AMPHETAMINE SCREEN, URINE NEGATIVE (NEGATIVE); BARBITURATE SCREEN URINE NEGATIVE (NEGATIVE); BENZODIAZEPINES SCREEN URINE NEGATIVE (NEGATIVE); CANNABINOID SCREEN, URINE NEGATIVE (NEGATIVE); COCAINE SCREEN URINE NEGATIVE (NEGATIVE); METHADONE STAT NEGATIVE (NEGATIVE); METHAMPHETAMINE SCREEN URINE S NEGATIVE (NEGATIVE); OPIATE SCREEN URINE NEGATIVE (NEGATIVE); OXYCODONE STAT NEGATIVE (NEGATIVE); PROPOXYPHENE STAT NEGATIVE (NEGATIVE); TRICYCLIC ANTIDEPRESSANTS SCRE NEGATIVE (NEGATIVE)
[2021-09-18 16:14] LABS: BILIRUBIN,TOTAL 0.6 MG/DL (0.1-1.0)
[2021-09-18 16:15] LABS: ALKALINE PHOSPHATASE 52 U/L (40-136); CREATININE SERUM 0.82 MG/DL (0.60-1.30); GFR ESTIMATED 107
[2021-09-18] MEDS ORDERED: IOHEXOL 350 MG/ML 100 ML (OMNIPAQUE 350) VIAL IV ONE (16:15)
[2021-09-18] MEDS ORDERED: NS 100 ML (IVPB) BAG IV ONE (16:15)
[2021-09-18] MEDS ORDERED: HOLD METFORMIN - RECEIVED CONTRAST 20 ML VIAL IV SCH (16:15)
[2021-09-18 16:16] LABS: BUN/CREATININE RATIO 11
[2021-09-18 16:18] LABS: ALANINE AMINOTRANSFERASE 19 U/L (0-55); MAGNESIUM 1.7 MG/DL (1.6-2.4)
[2021-09-18 16:28] LABS: ACETAMINOPHEN < 10 UG/ML (10-30)
--- NOTE | 2021-09-18 17:55 | Diagnostic Imaging Report ---
Exam: CT angiography of the chest, abdomen and pelvis with intravenous contrast. Date: September 18, 2021. Indication: 36-year-old male, chest and abdominal pain. Dizziness. Lightheadedness. Comparison: Chest radiograph May 062017. CT angiography chest July 19, 2018. CT abdomen and pelvis without contrast May 06, 2018. Technique: Axial CT angiogram images of the chest abdomen, and pelvis were obtained with intravenous contrast. Coronal and sagittal as well as 3-dimensional reformats were obtained and provided. All CT scans use one or more of the following dose optimizing techniques: automated exposure control, MA and/or KvP adjustment based on patient size and exam type or iterative reconstruction. Findings: There are multiple subcentimeter calcified granulomas. There is no identified noncalcified pulmonary nodule. There is no lung mass. There is no otherwise noted focal airspace consolidation. There is no pneumothorax. There is no pleural effusion. The central airways are patent. There is no identified pulmonary embolus. The heart is not enlarged. There is no pericardial effusion. There is no identified abnormally enlarged mediastinal, hilar or axillary lymph node which meets CT size criteria for adenopathy. There is bilateral gynecomastia. There is incidental note of direct origin of the left vertebral artery off the aortic arch. The liver is unremarkable in size and contour. There is no identified liver lesion. The main, right and left portal veins are patent. The gallbladder is unremarkable. There is no intrahepatic or extrahepatic bile duct dilation. The main pancreatic duct is not abnormally dilated. Unremarkable appearance of the pancreatic parenchyma. The spleen is normal in size. The adrenal glands are unremarkable. Unremarkable appearance of the renal parenchyma. The urinary collecting systems are not distended. There is no identified renal or ureteral stone. Urinary bladder is unremarkable. The intestinal tract is not distended. There is no evidence to suggest acute appendicitis. There is no free intraperitoneal air. There is no drainable fluid collection. There is no free pelvic fluid. There is no identified abnormally enlarged lymph node in the abdomen or pelvis meeting CT size criteria for adenopathy. There is no identified acute bony abnormality. Impression: 1. No identified pulmonary embolus or other acute cardiopulmonary abnormality. 2. Sequela of prior granulomatous disease. 3. No identified acute abnormality in the abdomen or pelvis. 4. Bilateral gynecomastia. Dictated by: Dictated on workstation # [id number]
[2021-09-18 18:13] VITALS: BP 126/68
== END 2021-09-18 18:15 | disposition home or self-care (01) ==
LOC: EDUNIT# 15:34 → ER 15:36
DX: F41.9 Anxiety disorder, unspecified (principal); K21.9 Gastro-esophageal reflux disease without esophagitis; F17.210 Nicotine dependence, cigarettes, uncomplicated; Z88.2 Allergy status to sulfonamides
CPT/HCPCS: 36415; 71275; 74177; 80053; 80306; 80320; 80329; 81000; 82150; 83690; 83735; 84484; 85025; 93005

== ENCOUNTER 2021-09-29 05:28 | Outpatient (RCR) | payer BC ==
[~2021-09-29] VITALS: Ht 185.5 cm; Wt 95.3 kg
== END 2021-09-29 09:39 | disposition home or self-care (01) ==
LOC: PREOP 05:28
PROVIDERS: ATTEND Internal Medicine
DX: R13.10 Dysphagia, unspecified (principal); R10.32 Left lower quadrant pain; Z20.822 Contact with and (suspected) exposure to COVID-19
CPT/HCPCS: 87635

== ENCOUNTER 2021-10-01 09:08 | Day surgery (SDC) | payer BC ==
[~2021-10-01] VITALS: Ht 185 cm; Wt 93.0 kg
[2021-10-01] MEDS ORDERED: LACTATED RINGERS 1,000 ML IV STA (09:10)
[2021-10-01] MEDS ORDERED: LIDOCAINE JELLY 2% 6 ML SYRINGE MM PRN (09:15)
[2021-10-01] MEDS ORDERED: HURRICAINE EXT TUBE (BENZOCAINE) XX PRN (09:15)
[2021-10-01 09:20] VITALS: BP 107/76
[2021-10-01] MEDS ORDERED: PROPOFOL INJECTION 50 ML IV ONE ×2 (10:31→10:50)
[2021-10-01] MEDS ORDERED: MIDAZOLAM 2 MG/2 ML (VERSED) VIAL ONE (10:31)
--- NOTE | 2021-10-01 10:43 | Pre-Op Note & Conscious Sedat ---
Pre-Operative Progress Note H&P Reviewed The H&P was reviewed, patient examined and no changes noted. Date H&P Reviewed: Oct 01, 2021 Time H&P Reviewed: 10:15 Conscious Sedation Pre-Proced ASA Score 2 For ASA 3 and 4: Consider anesthesia and medical clearance. Also, for patients with a history of failed moderate sedation consider anesthesia. Airway Lungs Heart ASA score ASA 1: a normal healthy patient ASA 2: a patient with a mild systemic disease (mid diabetes, controlled hypertension, obesity ASA 3: a patient with a severe systemic disease that limits activity (angina, COPD, prior Myocardial infarction) ASA 4: a patient with an incapacitating disease that is a constant threat to life (CHF, renal failure) ASA 5: a moribund patient not expected to survive 24 hrs. (ruptured aneurysm) ASA 6: a declared brain- patient whose organs are being harvested. For emergent operations, add the letter E after the classification Mallampati Classification Grade 2 Sedation Plan Analgesia, Amnesia, Plan communicated to team members, Discussed options with patient/fam, Discussed risks with patient/fam The patient is an appropriate candidate to undergo the planned procedure, sedation, and anesthesia. The patient immediately re-assessed prior to indication. CL NAZARIO MD Oct 01, 2021 10:43
[2021-10-01 11:15] VITALS: BP 88/48
[2021-10-01 11:18] VITALS: BP 100/56
--- NOTE | 2021-10-01 11:56 | Anesthesia-General Post-Op ---
MAC Patient Condition Mental Status/LOC: Same as Preop Cardiovascular: Satisfactory Nausea/Vomiting: Absent Respiratory: Satisfactory Pain: Controlled Complications: Absent Post Op Complications Complications None Follow Up Care/Instructions Patient Instructions None needed. Anesthesiology Discharge Order Discharge Order Patient is doing well, no complaints, stable vital signs, no apparent adverse anesthesia problems. No complications reported per nursing. CAYETANO SIMEON CRNA Oct 01, 2021 11:56
[2021-10-01 12:04] VITALS: BP 118/74
[2021-10-01] MEDS ORDERED: OMEP20CA18 PO (12:27)
--- NOTE | 2021-10-01 19:00 | OPERATIVE REPORT ---
DATE OF SERVICE: PANENDOSCOPY SUMMARY INDICATION FOR THE PROCEDURE: Panendoscopy was performed for evaluation of dysphagia as well as left lower quadrant abdominal pain with intermittent bright red blood per rectum. DESCRIPTION OF PROCEDURE: The patient was placed in the left lateral decubitus position. The endoscope was inserted in the oral cavity and under direct visualization, esophagus was intubated. The endoscope was passed down the esophagus through stomach and second portion of the duodenum. Careful inspection was made as the endoscope was withdrawn. FINDINGS: The posterior pharynx, epiglottis, arytenoid aperture and true and false vocal folds were unremarkable to visual inspection. Proximal and mid esophagus were unremarkable. There were several linear erosions and shallow ulcerations noted in the distal esophagus without evidence for stricture formation compatible with LA grade B erosive esophagitis. There was no obvious furrowing of the mucosa. No nodularity and no obvious Hernandez's change. Biopsies were obtained and submitted for histopathology including a distal esophageal biopsy submitted for evaluation for eosinophilic esophagitis. The cardia, fundus, antrum, pylorus, pyloric channel, duodenal bulb and second portion of the duodenum were unremarkable. There was no evidence for hiatal hernia formation. ASSESSMENT: Findings compatible with LA grade B erosive esophagitis were present. Biopsies are pending with further recommendations for surveillance EGD to follow biopsy results. Advised the patient to increase proton pump inhibitor therapy to b.i.d. use and discuss non-medication reflux measures as well. We then proceeded with colonoscopy. The patient was placed in the left lateral decubitus position. Prior to undergoing colonoscopy, digital rectal evaluation was performed. Anal sphincter tone was normal. Perianal reflexes intact. The distal rectal vault and prostate were unremarkable on digital inspection. The colonoscope was then inserted into the rectum and under direct visualization advanced to cecum. The cecum was identified by identification of ileocecal valve and cecal strap. Photographic documentation was obtained. Quality of prep was good. FINDINGS: There was no evidence for internal or external hemorrhoids. There were lot of telangiectatic blood vessels in the distal anal canal, more so than average, but no evidence for overt hemorrhoids were noted. No blood was noted in the colon. Present in the proximal rectum was a 5 mm pedunculated polyp on a very short stalk. It was biopsied and ablated and submitted for histopathology. Uniform mucosal features. The sigmoid colon, descending colon, splenic flexure, transverse colon and hepatic flexure were unremarkable. Present in the proximal ascending colon adjacent to the ileocecal valve was a 1 cm adenomatous appearing sessile polyp. It was photographed and biopsied and ablated with no subsequent blood loss. The remainder of the cecum was unremarkable. ASSESSMENT: Two adenomatous polyps were removed today as noted above without blood loss via hot forceps. One from the proximal rectum, the other from the proximal ascending colon. Due to this patient's young age and the size of the ascending colonic polyp as long as there is no surprise on histopathology report, we will be advocating repeat surveillance colonoscopy in one year. Job ID: [id number] DocumentID: [id number] Dictated Date: 10/01/2021 11:17:28 Scale Balancer Date: 10/01/2021 15:53:13 Dictated By: CL NAZARIO MD
--- NOTE | 2021-10-05 16:03 | HISTORY AND PHYSICAL ---
DATE OF SERVICE: PANENDOSCOPY SUMMARY HISTORY OF PRESENT ILLNESS: The patient well as a 36-year-old white male referred by Dr. Prateek Graves for consideration for panendoscopy. He reports over the past several months, he has been having increased dysphagia to solids. He sometimes will have a burning epigastric pain that radiates through to his back and with this, he has noticed at times that the stools have been quite a bit darker than normal, although he denies that they are overtly black. He does report some intermittent bright red blood per rectum that he attributes to hemorrhoids. With this, he has noticed bowel habit change as well as increase in the left lower quadrant abdominal pain. For this reason, he is being set up for diagnostic panendoscopy. He reports that there has been some decrease in appetite. He thinks he has lost about 10 pounds over the past month. PAST MEDICAL HISTORY: Significant for reported peptic ulcer disease when he was in his mid 20s. This was around the time he stated that he was drinking more heavily. He had several episodes of hemoptysis around drinking binges. He underwent EGD evaluation and they noted ulceration, although he is not sure where it was. He has 5 children now and he reports that this changed his life. The youngest is 2, the oldest is 7, since that time he reports only occasional social alcohol intake, rarely has more than 2 beers at the setting. He does smoke about a pack and half cigarettes per day. He is looking into getting Chantix and does have a goal of quitting. He did go to the emergency room with multiple varying complaints from dizziness to fatigue, a knot in his chest; back, flank and abdominal pain. He underwent CT angiography of the chest and CT of the abdomen and pelvis revealing no significant abnormalities. He had a CBC, chemistry panel and lipase level that were unremarkable as well as an unremarkable urine drug screen and ECG. FAMILY HISTORY: He believes that his grandfather had colon cancer later in life and he is concerned that this may be the case for him. His dad had kidney cancer in his 60s. He is not aware of any other health issues in the family. SOCIAL HISTORY: Past heavy drinking. Moderate over the last 7 years since the of his first child. 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 PAST SURGICAL HISTORY: He has had tonsillectomy and adenoidectomy as a child, oral surgery and right forearm fracture requiring ORIF. PHYSICAL EXAMINATION: GENERAL: Reveals a white male who appears anxious, but not in acute distress. VITAL SIGNS: Weight 210 pounds, blood pressure 130/72. HEENT: Unremarkable. Sclerae nonicteric. No evidence for pallor. CHEST: Clear to auscultation. CARDIOVASCULAR: Reveals a regular rate and rhythm without murmur, S3 or S4. ABDOMEN: Soft, supple. There is mild epigastric discomfort to palpation without rebound or guarding. Bowel sounds positive. No bruits noted. No mass noted. EXTREMITIES: Reveal no cyanosis, clubbing or edema. ASSESSMENT AND PLAN: 1. The patient is being set up for panendoscopy due to history of dysphagia to solids with weight loss and left lower quadrant abdominal pain with intermittent bright red blood per rectum. There has also been reported change in bowel habit. Prep instructions with the Suprep kit were given and questions were answered. 2. Strongly suspect underlying generalized anxiety. With review of his electronic medical record and discussion today a little over 45 minutes care time spent. Thank you for the referral of this pleasant gentleman. Job ID: [id number] DocumentID: [id number] Dictated Date: 09/23/2021 12:38:27 Whittling Room Operator Date: 09/23/2021 13:00:26 Dictated By: CL NAZARIO MD <Dictated by CL NAZARIO MD> <Electronically signed by CL NAZARIO MD> 09/26/21 0837 MTDD
== END 2021-10-01 12:06 | disposition home or self-care (01) ==
LOC: ENDO 09:08
PROVIDERS: ATTEND Internal Medicine
DX: K21.00 Gastro-esophageal reflux disease with esophagitis, without bleeding (principal); D12.2 Benign neoplasm of ascending colon; D12.8 Benign neoplasm of rectum; I99.8 Other disorder of circulatory system; R10.32 Left lower quadrant pain; J45.909 Unspecified asthma, uncomplicated; F41.9 Anxiety disorder, unspecified; F17.210 Nicotine dependence, cigarettes, uncomplicated; Z90.89 Acquired absence of other organs; Z80.0 Family history of malignant neoplasm of digestive organs